=== PATIENT | female | born 1960 | race Caucasian/White ===

== ENCOUNTER 2020-06-01 15:47 | Outpatient (REF) | payer OTHER, SELFPAY ==
--- NOTE | 2020-06-01 | MM_ITS ---
EXAMINATION: MM SCREENING DIGITAL BREAST TOMOSYNTHESIS, BILATERAL CLINICAL INFORMATION: Screening. Asymptomatic. The lifetime risk of breast cancer based on the Tyrer-Cuzick Model is 8%. COMPARISON: Mammography: 08/20/2018, 07/10/2017, 06/27/2017, 03/13/2016 TECHNIQUE: Digital breast tomosynthesis is performed in both the craniocaudal and mediolateral oblique views along with computer-aided detection (CAD). Synthesized 2D images are generated from the tomosynthesis. Additional left MLO view is provided. FINDINGS: The breasts are heterogeneously dense, which may obscure small masses (ACR BI-RADS breast composition Category c). Parenchymal pattern is similar to prior studies. There is no developing density or interval mass or architectural abnormality. No abnormal calcifications. The skin contours are smooth. MM/MM tomosynthesis screening BI IMPRESSION: No mammographic evidence of malignancy. ASSESSMENT: BI-RADS 1: Negative RECOMMENDATION: Routine annual mammography screening. This patient's information was entered into a reminder system with a target due date for their next mammogram.
== END 2020-06-01 15:48 | disposition home or self-care (01) ==
LOC: HO.MAMMO 15:47
PROVIDERS: PCP Internal Medicine; Visit Provider Internal Medicine
DX: Z12.31 Encounter for screening mammogram for malignant neoplasm of breast (principal)
CPT/HCPCS: 77063; 77067

== ENCOUNTER 2020-08-24 14:25 | Outpatient (REF) | payer OTHER, SELFPAY ==
[2020-08-24 15:54] LABS: Alanine Aminotransferase 18 U/L (0-31); Albumin Level 4.3 g/dL (3.5-5.0); Alkaline Phosphatase 70 U/L (39-117); Anion Gap 14 (12-20); Aspartate Amino Transferase 21 U/L (5-31); Bilirubin Direct 0.2 mg/dL (0.0-0.5); Bilirubin Total 0.5 mg/dL (0.0-1.0); Blood Urea Nitrogen 11 mg/dL (9-16); Calcium 9.3 mg/dL (8.4-10.2); Carbon Dioxide 27 mmol/L (22-29); Chloride 105 mmol/L (96-108); Estimated Glomerular Filt Rate > 60; Glucose Random 94 mg/dL (60-115); Potassium 4.4 mmol/L (3.3-5.1); Sodium 142 mmol/L (135-145); Total Protein 7.6 g/dL (6.5-8.0)
[2020-08-24 16:32] LABS: Amphetamine Screen Urine Not Detected (Not Detect); Barbiturates, Urine Not Detected (Not Detect); Benzodiazepines Screen Urine Not Detected (Not Detect); Cannabinoid Screen Urine Not Detected (Not Detect); Cocaine Screen Urine Not Detected (Not Detect); Opiate Screen Urine Not Detected (Not Detect); Phencyclidine Screen Urine Not Detected (Not Detect)
[2020-08-24 16:35] LABS: Folate 18.1 ng/mL (> or = 4.0)
[2020-08-24 17:14] LABS: Vitamin B12 539 pg/mL (200-900)
== END 2020-08-24 14:26 | disposition home or self-care (01) ==
LOC: HO.LAB 14:25
PROVIDERS: PCP Internal Medicine; Visit Provider Psychiatry & Neurology Neurology
DX: G31.84 Mild cognitive impairment of uncertain or unknown etiology (principal)
CPT/HCPCS: 80053; 80076; 80307; 82248; 82607; 82746

== ENCOUNTER 2021-08-15 15:06 | Emergency (ER) | payer OTHER, SELFPAY ==
--- NOTE | ~2021-08-15 | CT_ITS ---
EXAMINATION: CT HEAD WITHOUT CONTRAST (STROKE PROTOCOL) CLINICAL INFORMATION: Stroke protocol. Right-sided facial droop COMPARISON: None TECHNIQUE: Contiguous axial imaging was performed from the skull base to vertex without intravenous administration of contrast. This CT examination was performed using dose optimization techniques as appropriate, variously including the following: *Automated exposure control *Adjustment of mA and/or kV according to patient size (this includes techniques or standardized protocols for targeted exams where dose is matched to indication/reason for exam; i.e. extremities or head) *Use of iterative reconstruction technique DLP: 684 mGy-cm FINDINGS: There is no intracranial hemorrhage, hematoma, or extra-axial fluid collection. The ventricles, sulci, and cisterns are prominent involving the frontal and occipital lobes with the appearance of Alzheimer's disease. The silva-white matter differentiation appears symmetric. There is no acute infarct or mass lesion. There is some periventricular white matter low density present. The calvarium appears intact. There is no pneumocephalus or orbital emphysema. The visualized sinuses and middle ears and mastoid air cells show no significant mucosal thickening. There are no air-fluid levels. CT/CT head for stroke IMPRESSION: Bilateral frontal lobe atrophy with the appearance of Alzheimer's disease. No acute intracranial abnormality appreciated. This critical result was discussed with Dr. Mac at 3:28 PM hours on August 15, 2021. It was ascertained that the content and urgency of the report was understood at the time of direct communication.
--- NOTE | ~2021-08-15 | CT_ITS ---
EXAMINATION: CT ANGIOGRAM OF THE HEAD CT ANGIOGRAM OF THE NECK CLINICAL INFORMATION: Right-sided facial droop and confusion. COMPARISON: CT scan of the head earlier 08/15/2021. TECHNIQUE: Test bolus series followed by intravenous administration 70 mL of Omnipaque 300. Helical imaging was performed in the axial plane from the mediastinum to the skull vertex. A delayed postcontrast CT scan of the head was obtained. The degree of stenosis is based off NASCET criteria. The data was processed at the mri special procedures technologist workstation for generation of MIP images. Three-dimensional volume rendered reformatted images were also generated at an offline 3-D workstation. This CT examination was performed using dose optimization techniques as appropriate, variously including the following: *Automated exposure control *Adjustment of mA and/or kV according to patient size (this includes techniques or standardized protocols for targeted exams where dose is matched to indication/reason for exam; i.e. extremities or head) *Use of iterative reconstruction technique DLP: 1522 mGy-cm. FINDINGS: CT Head: There is no evidence of acute intracranial hemorrhage or territorial infarction. No abnormal mass-effect or midline shift is seen. [place] to white matter differentiation is well preserved. No extra-axial fluid collections are identified. There is no abnormal enhancement. The study demonstrates prominence of the bilateral anterior horns, anterior bodies and temporal horns of the lateral ventricles bilaterally. There is some low attenuation in the periventricular and subcortical white matter bilaterally anteriorly which is nonspecific. The osseous structures and soft tissues are normal. The mastoid air cells and visualized portions of the paranasal sinuses are well-aerated. CTA Neck: There is a classic configuration of the aortic arch. There are mild atheromatous calcifications of the arch. The subclavian arteries are patent bilaterally. The common carotid arteries are patent with uniform caliber. The carotid bifurcations appear normal. The bilateral cervical internal carotid arteries have uniform caliber and are patent. The origins of the vertebral arteries are well-demonstrated bilaterally. The left vertebral artery is dominant, and the right vertebral artery has a uniform but thin caliber throughout its cervical course extending intracranially. Nonvascular: The upper lung edwards appear well-aerated. The thyroid gland is relatively small. There are mildly prominent lymph nodes at multiple levels in the neck bilaterally. There are mild spondylitic changes in the cervical spine. The right maxillary 3rd molar tooth is impacted and unerupted. CTA Head: There is minimal atheromatous calcification of the bilateral cavernous internal carotid arteries which are patent. The intracranial internal carotid arteries and their bifurcations appear normal. The middle and anterior cerebral arteries bilaterally demonstrate normal caliber with no evidence of focal stenosis, aneurysm or vascular malformation. There is normal arborization of the middle cerebral artery branches. The anterior communicating artery is normal. In the posterior circulation, the left vertebral artery is dominant. The vertebral arteries intradurally have normal caliber. The basilar artery appears normal. The posterior cerebral arteries have normal caliber. The venous sinuses opacify normally. CT/CT angio head neck stroke IMPRESSION: 1. There are no acute bleeds or territorial infarct. There are no masses or areas of abnormal enhancement. 2. The anterior horns, anterior bodies and temporal horns of the lateral ventricles bilaterally are prominent as described above. There are periventricular white matter changes as described above. 3. No significant atheromatous changes are seen in the neck circulation. There are no flow-limiting stenoses. 4. Intracranially there are no focal stenoses, aneurysms or vascular malformations. 5. This critical result was discussed with Dr Mac by telephone on 08/15/2021 at 4:11 PM and it was ascertained that the content and urgency of the report was understood at the time of direct communication.
--- NOTE | ~2021-08-15 | XR_ITS ---
EXAMINATION: XR CHEST CLINICAL INFORMATION: Stroke COMPARISON: None TECHNIQUE: AP portable view of the chest was obtained. FINDINGS: There is mild elevation of the right hemidiaphragm. There are some increased markings at the right lung base likely related to atelectasis or scarring. No confluent parenchymal disease is appreciated. No pneumothorax or pleural effusion. Heart normal size. No evidence of pulmonary edema. XR/XR chest 1V IMPRESSION: No significant acute parenchymal disease.
--- NOTE | ~2021-08-15 | MR_ITS ---
EXAMINATION: MR BRAIN WITHOUT CONTRAST CLINICAL INFORMATION: Stroke. COMPARISON: CT head from 08/15/2021. TECHNIQUE: MRI of the brain was obtained using routine sequences without contrast. FINDINGS: No focal restricted diffusion is demonstrated to suggest acute or subacute cerebral ischemia. No evidence of acute or chronic hemorrhagic products on heme-sensitive imaging. Disproportionate prominent volume loss of the right greater than left frontal lobes, insular parenchyma, and anterior temporal lobes. Associated partially confluent T2 FLAIR hyperintensity within the periventricular and deep white matter T2 FLAIR hyperintensity within the bilateral frontal lobes. There are additional scattered periventricular and deep white matter T2 FLAIR hyperintensities most commonly seen with mild underlying microangiopathy. Proportional prominence of the ventricles and sulcal spaces without evidence of obstructive hydrocephalus. No abnormal mass effect. No midline shift. Normal appearance of the pituitary gland. Normal positioning of the cerebellar tonsils. Normal arterial and venous vascular flow voids are present. Normal, homogeneous marrow signal. There is a 1.1 cm lymph node with fatty hilum in the anterior aspect of the superficial lobe of the left parotid gland. Mild degenerative spondyloarthropathy of the visualized upper cervical spine. Moderate mucosal thickening of the paranasal sinuses. No signal abnormalities within the mastoids. MR/MR head/brain wo con IMPRESSION: 1. No acute intracranial abnormalities. 2. Prominent disproportionate volume loss of the right greater than left frontotemporal lobes with associated encephalomalacia/gliosis. Ex vacuo dilatation of the frontal horns of the lateral ventricles.
--- NOTE | 2021-08-15 15:11 | ECG_ITS ---
Test Reason : stroke alert Blood Pressure : / mmHG Vent. Rate : 076 BPM Atrial Rate : 076 BPM P-R Int : 120 ms QRS Dur : 074 ms QT Int : 400 ms P-R-T Axes : 046 -02 019 degrees QTc Int : 450 ms Normal sinus rhythm Nonspecific T wave abnormality Abnormal ECG No previous ECGs available Referred By: Lety Nolasco Electronically Signed By:JARED GATICA
[2021-08-15 15:17] LABS: Prothrombin Time Whole Bld POC 11.2 sec (11.1-13.5); ~PT, ~INR - Anti Coag Clinic 0.9 (0.9-1.1)
--- NOTE | 2021-08-15 15:28 | ED_ITS ---
HPI - Neuro Symptoms/Deficit General Chief Complaint: Stroke Stated Complaint: STROKE ALERT, R FACE DROOP,AMS X'S 2 HRS,NO THINNE Time Seen by Provider: 08/15/21 15:10 Source: patient, family () and EMS Mode of arrival: EMS Limitations: no limitations History of Present Illness HPI Narrative: 60-year-old female history of dementia noted by her today at 11:00 patient has more incoherent, more right-sided facial droop than her baseline, slightly unstable gait. Patient was transported to the hospital as stroke alert. On arrival patient has no new neurological deficit, patient follow commands of the examiner intermittently. Not taking any anti coagulation. Related Data Allergies Allergy/AdvReac Type Severity Reaction Status Date / Time No Known Allergies Allergy Verified 08/15/21 15:10 Review of Systems Review of Systems: Insert surge of system Yes Unobtainable due to mental condition (Dementia) [facility] Social History Social History Advance Directives: Yes Advance Directives Information Provided: No Advance Directives on File: No Physical Exam Vital Signs: Vital Signs: Last Vital Signs Temp 97.9 F 08/15/21 15:47 Pulse 74 08/15/21 15:47 Resp 18 08/15/21 15:47 BP 112/55 L 08/15/21 15:47 Pulse Ox 97 08/15/21 15:47 BMI result Body Mass Index 22.7 Vital signs have been reviewed as appeared to be correct. Blood pressure normal. Heart rate normal. Respiration rate normal. Temperature normal. Oxygen saturation normal. Appearance: Alert. Oriented X3. No acute distress. Head: Normal external exam. Normocephalic. Atraumatic. No Weir signs noted. No raccoon eyes noted, mild right facial droop. Eyes: PERRLA. EOMI. Conjunctiva and sclera normal. Eyelids normal. ENT: TM's Normal. Pharynx normal. Uvula midline. Moist mucous membranes. No trismus noted. No drooling noted. No muffled voice noted. Neck: Normal inspection. Neck supple. FROM. No adenopathy. Thyroid Normal. No meningeal signs. No neck mass noted. CVS: Normal heart rate and rhythm. Heart sound normal. No murmurs noted. Pulses normal throughout. Respiratory: No respiratory distress. Painless inspiration. Breath sounds normal. No wheezes/rales/rhonchi noted. Chest nontender. No accessory muscle usage noted or decreased air movement noted. Abdomen: Soft and nontender. Bowel sounds normal in all 4 quadrants. No distention noted. No organomegaly noted. No visible injury noted. Back: No CVA tenderness. Full range of motion noted. Skin: Skin warm and dry. Normal skin color. Normal skin turgor. No rashes/lesions/lacerations noted. Extremities: No lower extremity edema. Extremities exhibit normal range of motion. Extremities nontender. Neuro: Oriented X 3. Cranial nerve exam: II-XII are grossly intact No motor deficit. No sensory deficit. Reflexes normal. Course Course Course Narrative: Assessment and plan. 60-year-old female history of dementia brought in by her family for increased ease incoherent and decreased mental status, patient had a CT head and MRI of the head which showed no acute intracranial stroke, patient also had a CTA of the head and neck which showed no acute thromboembolic blockage of any of the major vessels.Labs is remarkable for include is of TSH with normal free T4, patient is taking levothyroxine a home but there is a question of compliance because of the patient's dementia, discussion with the family to arrange for visiting nurse to administer patient's medication, social security assessor consultation was obtained with VNA referral was requested. Patient is showing leukocytosis for unclear source of infection. MDM - Neuro Symptoms/Deficit Medical Records Attestation: I reviewed the patient's medical records. Lab Data Attestation: I reviewed the patient's lab results. Result diagrams: 08/15/21 15:40 08/15/21 15:40 Labs: Lab Results 08/15/21 08/15/21 08/15/21 Range/Units 15:13 15:35 15:40 WBC 14.9 H (4.8-10.8) X10*3/uL RBC 3.96 L (4.20-5.50) X10*6/uL Hgb 11.9 L (12.0-16.0) g/dl Hct 37.2 (37.0-47.0) % MCV 93.9 (80.0-98.0) fL MCH 30.1 (27.0-33.0) pg MCHC 32.0 (31.0-35.0) g/dl RDW 12.7 (11.0-16.0) % Plt Count 250 (160-400) X10*3/uL MPV 9.3 L (9.4-12.3) fL Immature Gran % (Auto) 0.5 H (0.0-0.4) % Neut % (Auto) 85.4 H (45-73) % Lymph % (Auto) 5.7 L (20-40) % [place] % (Auto) 8.2 (2-11) % Eos % (Auto) 0.1 (0-4) % Baso % (Auto) 0.1 (0-2) % Lymph # (Auto) 0.9 L (1.2-4.9) X10*3/uL [place] # (Auto) 1.2 (0.1-1.2) X10*3/uL Eos # (Auto) 0.0 (0.0-0.4) X10*3/uL Baso # (Auto) 0.0 (0.0-0.2) X10*3/uL Abs Immat Gran (auto) 0.07 H (0.00-0.03) X10*3/uL Absolute Neuts (auto) 12.7 H (2.0-8.3) x10*3/uL Absolute Nucleated RBC 0.000 (0.0-0.012) X10*3/uL Nucleated RBC % (auto) 0.0 (0.0-0.2) /100WBC PT (9.9-13.0) SEC Whole Blood PT 11.2 (11.1-13.5) sec INR (0.9-1.1) Whole Blood INR 0.9 (0.9-1.1) APTT (24.1-38.0) SEC Sodium (135-145) mmol/L Potassium (3.3-5.1) mmol/L Chloride (96-108) mmol/L Carbon Dioxide (22-29) mmol/L Anion Gap (12-20) BUN (9-16) mg/dL Creatinine (0.5-1.4) mg/dL Estim Creat Clear Calc Estimated GFR POC Glucose 125 H (60-115) mg/dL Random Glucose (60-115) mg/dL Calcium (8.4-10.2) mg/dL Magnesium (1.6-2.6) mg/dL Total Bilirubin (0.0-1.0) mg/dL Direct Bilirubin (0.0-0.5) mg/dL AST (5-31) U/L ALT (0-31) U/L Alkaline Phosphatase (39-117) U/L Total Creatine Kinase (26-140) U/L Troponin I High Sens (<3.5-17.0) ng/L Total Protein (6.5-8.0) g/dL Albumin (3.5-5.0) g/dL Lipase (8-78) U/L TSH (0.32-4.0) uIU/mL Free T4 (0.71-1.85) ng/dL Urine Color Urine Appearance Urine pH (5.0-8.0) Ur Specific [place] (1.005-1.025) Urine Protein (NEG-TRACE) MG/DL Urine Glucose (UA) (NEG) MG/DL Urine Ketones (NEG) MG/DL Urine Blood (NEG) Urine Nitrite (NEG) Ur Leukocyte Esterase (NEG) 08/15/21 08/15/21 08/15/21 Range/Units 15:40 15:40 15:40 WBC (4.8-10.8) X10*3/uL RBC (4.20-5.50) X10*6/uL Hgb (12.0-16.0) g/dl Hct (37.0-47.0) % MCV (80.0-98.0) fL MCH (27.0-33.0) pg MCHC (31.0-35.0) g/dl RDW (11.0-16.0) % Plt Count (160-400) X10*3/uL MPV (9.4-12.3) fL Immature Gran % (Auto) (0.0-0.4) % Neut % (Auto) (45-73) % Lymph % (Auto) (20-40) % [place] % (Auto) (2-11) % Eos % (Auto) (0-4) % Baso % (Auto) (0-2) % Lymph # (Auto) (1.2-4.9) X10*3/uL [place] # (Auto) (0.1-1.2) X10*3/uL Eos # (Auto) (0.0-0.4) X10*3/uL Baso # (Auto) (0.0-0.2) X10*3/uL Abs Immat Gran (auto) (0.00-0.03) X10*3/uL Absolute Neuts (auto) (2.0-8.3) x10*3/uL Absolute Nucleated RBC (0.0-0.012) X10*3/uL Nucleated RBC % (auto) (0.0-0.2) /100WBC PT 12.9 (9.9-13.0) SEC Whole Blood PT (11.1-13.5) sec INR 1.1 (0.9-1.1) Whole Blood INR (0.9-1.1) APTT 31.8 (24.1-38.0) SEC Sodium 140 (135-145) mmol/L Potassium 4.3 (3.3-5.1) mmol/L Chloride 109 H (96-108) mmol/L Carbon Dioxide 19 L (22-29) mmol/L Anion Gap 16 (12-20) BUN 17 H (9-16) mg/dL Creatinine 0.92 (0.5-1.4) mg/dL Estim Creat Clear Calc 61.6 Estimated GFR > 60 POC Glucose (60-115) mg/dL Random Glucose 152 H (60-115) mg/dL Calcium 9.0 (8.4-10.2) mg/dL Magnesium 1.9 (1.6-2.6) mg/dL Total Bilirubin 0.8 (0.0-1.0) mg/dL Direct Bilirubin 0.3 (0.0-0.5) mg/dL AST 18 (5-31) U/L ALT 15 (0-31) U/L Alkaline Phosphatase 55 D (39-117) U/L Total Creatine Kinase 50 (26-140) U/L Troponin I High Sens < 3.5 (<3.5-17.0) ng/L Total Protein 6.2 L (6.5-8.0) g/dL Albumin 3.5 (3.5-5.0) g/dL Lipase 36 (8-78) U/L TSH 22.41 H (0.32-4.0) uIU/mL Free T4 0.86 (0.71-1.85) ng/dL Urine Color Urine Appearance Urine pH (5.0-8.0) Ur Specific [place] (1.005-1.025) Urine Protein (NEG-TRACE) MG/DL Urine Glucose (UA) (NEG) MG/DL Urine Ketones (NEG) MG/DL Urine Blood (NEG) Urine Nitrite (NEG) Ur Leukocyte Esterase (NEG) 08/15/21 Range/Units 17:40 WBC (4.8-10.8) X10*3/uL RBC (4.20-5.50) X10*6/uL Hgb (12.0-16.0) g/dl Hct (37.0-47.0) % MCV (80.0-98.0) fL MCH (27.0-33.0) pg MCHC (31.0-35.0) g/dl RDW (11.0-16.0) % Plt Count (160-400) X10*3/uL MPV (9.4-12.3) fL Immature Gran % (Auto) (0.0-0.4) % Neut % (Auto) (45-73) % Lymph % (Auto) (20-40) % [place] % (Auto) (2-11) % Eos % (Auto) (0-4) % Baso % (Auto) (0-2) % Lymph # (Auto) (1.2-4.9) X10*3/uL [place] # (Auto) (0.1-1.2) X10*3/uL Eos # (Auto) (0.0-0.4) X10*3/uL Baso # (Auto) (0.0-0.2) X10*3/uL Abs Immat Gran (auto) (0.00-0.03) X10*3/uL Absolute Neuts (auto) (2.0-8.3) x10*3/uL Absolute Nucleated RBC (0.0-0.012) X10*3/uL Nucleated RBC % (auto) (0.0-0.2) /100WBC PT (9.9-13.0) SEC Whole Blood PT (11.1-13.5) sec INR (0.9-1.1) Whole Blood INR (0.9-1.1) APTT (24.1-38.0) SEC Sodium (135-145) mmol/L Potassium (3.3-5.1) mmol/L Chloride (96-108) mmol/L Carbon Dioxide (22-29) mmol/L Anion Gap (12-20) BUN (9-16) mg/dL Creatinine (0.5-1.4) mg/dL Estim Creat Clear Calc Estimated GFR POC Glucose (60-115) mg/dL Random Glucose (60-115) mg/dL Calcium (8.4-10.2) mg/dL Magnesium (1.6-2.6) mg/dL Total Bilirubin (0.0-1.0) mg/dL Direct Bilirubin (0.0-0.5) mg/dL AST (5-31) U/L ALT (0-31) U/L Alkaline Phosphatase (39-117) U/L Total Creatine Kinase (26-140) U/L Troponin I High Sens (<3.5-17.0) ng/L Total Protein (6.5-8.0) g/dL Albumin (3.5-5.0) g/dL Lipase (8-78) U/L TSH (0.32-4.0) uIU/mL Free T4 (0.71-1.85) ng/dL Urine Color YELLOW Urine Appearance HAZY Urine pH 6.5 (5.0-8.0) Ur Specific [place] 1.010 (1.005-1.025) Urine Protein TRACE (NEG-TRACE) MG/DL Urine Glucose (UA) NEG (NEG) MG/DL Urine Ketones 5 (NEG) MG/DL Urine Blood TRACE (NEG) Urine Nitrite NEG (NEG) Ur Leukocyte Esterase NEG (NEG) Imaging Data Head CT: Attestation: I personally reviewed and interpreted this imaging study as follows: Radiologist's impression: Bilateral frontal lobe atrophy with the appearance of Alzheimer's disease.No acute intracranial abnormality appreciated. ? Brain MRI: Attestation: I personally reviewed and interpreted this imaging study as follows: Radiologist's impression: 1. No acute intracranial abnormalities. ? 2. Prominent disproportionate volume loss of the right greater than left frontotemporal lobes with associated encephalomalacia/gliosis. Ex vacuo dilatation of the frontal horns of the lateral ventricles. Chest x-ray: Attestation: I personally reviewed and interpreted this imaging study as follows: Radiologist's impression: No significant acute parenchymal disease. ECG Data Attestation: I personally reviewed and interpreted this ECG as follows: Interpretation: Normal sinus rhythm at 76 beats per minutes, normal intervals, nonspecific T- wave inversion in the anterolateral leads. NIH Stroke Scale Time: 15:36 Level of Consciousness: Alert Level of Consciousness Questions: Answers neither question correctly (Patient normally have a cognitive disorder and dementia so patient is acting at her baseline.) Level of Consciousness Commands: Performs neither task correctly Best Gaze: Normal Visual: No visual loss Facial Palsy: Minor paralyis Motor Arm (Right): No drift Motor Arm (Left): No drift Motor Leg (Right): No drift Motor Leg (Left): No drift Limb Ataxia: Absent Sensory: Normal Best Language: No aphasia Dysarthia: Normal Extinction and Inattention: No abnormality Score: 5 Discharge Plan Discharge Clinical Impression: Dementia, Leukocytosis, Hypothyroidism Patient Disposition: Home, Self-Care Instructions: Dementia (ED) Referrals: Tarun Senior MD [Primary Care Provider] - 2 days
[2021-08-15] MEDS: iohexoL 350 MG/ML 100 ML INFUS..BTL IV (15:35)
[2021-08-15 15:43] VITALS: BMI 22.7
[2021-08-15 15:46] LABS: MANUAL DIFF FLAG NO
[2021-08-15 15:47] VITALS: BP 112/55; PULSE 74; RESP 18; TEMP 36.6; O2SAT 97
[2021-08-15 15:47] LABS: Basophils Percent Auto 0.1 % (0-2); Eosinophils Percent Auto 0.1 % (0-4); Hematocrit 37.2 % (37.0-47.0); Hemoglobin 11.9 g/dl (12.0-16.0); Imm Gran Abs Auto 0.07 X10*3/uL (0.00-0.03); Imm Gran Pct Auto 0.5 % (0.0-0.4); Lymphocytes Absolute Auto 0.9 X10*3/uL (1.2-4.9); Lymphocytes Percent Auto 5.7 % (20-40); Mean Corpuscular Hemoglobin 30.1 pg (27.0-33.0); Mean Corpuscular Volume 93.9 fL (80.0-98.0); Mean Platelet Volume 9.3 fL (9.4-12.3); Monocytes Absolute Auto 1.2 X10*3/uL (0.1-1.2); Monocytes Percent Auto 8.2 % (2-11); Neutrophils Absolute Auto 12.7 x10*3/uL (2.0-8.3); Neutrophils Percent Auto 85.4 % (45-73); Platelet Count 250 X10*3/uL (160-400); Red Blood Count 3.96 X10*6/uL (4.20-5.50); Red Cell Distribution Width 12.7 % (11.0-16.0); White Blood Count 14.9 X10*3/uL (4.8-10.8)
[2021-08-15 15:56] LABS: INTERNATIONAL NORM RATIO 1.1 (0.9-1.1); Prothrombin Time 12.9 SEC (9.9-13.0)
[2021-08-15 15:59] LABS: Partial Thromboplastin Time 31.8 SEC (24.1-38.0)
[2021-08-15 16:04] LABS: Alanine Aminotransferase 15 U/L (0-31); Albumin Level 3.5 g/dL (3.5-5.0); Alkaline Phosphatase 55 U/L (39-117); Anion Gap 16 (12-20); Aspartate Amino Transferase 18 U/L (5-31); Bilirubin Direct 0.3 mg/dL (0.0-0.5); Bilirubin Total 0.8 mg/dL (0.0-1.0); Blood Urea Nitrogen 17 mg/dL (9-16); Carbon Dioxide 19 mmol/L (22-29); Chloride 109 mmol/L (96-108); Creatinine Clr Calc Pharmacy 61.6; Estimated Glomerular Filt Rate > 60; Glucose Random 152 mg/dL (60-115); Lipase 36 U/L (8-78); Magnesium 1.9 mg/dL (1.6-2.6); Potassium 4.3 mmol/L (3.3-5.1); Sodium 140 mmol/L (135-145); Total Protein 6.2 g/dL (6.5-8.0)
[2021-08-15 16:06] LABS: Troponin-I High Sensitivity < 3.5 ng/L (<3.5-17.0)
[2021-08-15 16:23] LABS: TSH reflex Free T4 22.41 uIU/mL (0.32-4.0)
[2021-08-15 16:58] LABS: Glucose, Whole Blood 125 mg/dL (60-115)
[2021-08-15 17:23] LABS: Free T4 (Free Thyroxine) 0.86 ng/dL (0.71-1.85)
[2021-08-15 17:46] LABS: Appearance Urine HAZY; Color Urine YELLOW; Glucose Urine UA NEG (NEG); Leukocyte Esterase Urine NEG (NEG); Nitrite Urine NEG (NEG); PH 6.5 (5.0-8.0); UACC Culture Trigger NO; Urine Blood TRACE (NEG); Urine Ketones 5 MG/DL (NEG); Urine Protein TRACE MG/DL (NEG-TRACE)
[2021-08-15 18:00] LABS: RBC Urine 0-2 /HPF (0); WBC Urine 0 /HPF (0-4)
[2021-08-15 18:01] LABS: Bacteria Urine 1+ /LPF; Mucus Urine 1+ /LPF; Squamous Epithelial Cell Urine TRACE /LPF
--- NOTE | 2021-08-15 18:18 | MHC.CM.ED ---
CM met with patient and at the request of Dr. Mac regarding possible VNA at home. Concern that patient may not be taking all of her medications. Pt has dementia and elevated TSH. Pt is confused, wandering in ED, wanting to go home. Pt does not want any help. Pt is definitely confused. 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 states she is in the office, but has no responsibilities. Referral placed with [facility]. CM also gave listing of area home care companies that provide home care for private pay. Contact card given as CM and had difficulty speaking secondary to pt interrupting and wandering. Pt looking for daughter. CM had daughter come to bedside and patient was much more compliant staying in assigned bed/chair. Enc to call with any questions or concerns. Pt to be d/c home.
== END 2021-08-15 18:22 | disposition home or self-care (01) ==
PROVIDERS: Emergency Medicine; Emergency Provider Emergency Medicine; PCP Internal Medicine
DX: F03.90 Unspecified dementia, unspecified severity, without behavioral disturbance, psychotic disturbance, mood disturbance, and anxiety (principal); E03.9 Hypothyroidism, unspecified; D72.829 Elevated white blood cell count, unspecified; R29.705 NIHSS score 5; Z79.899 Other long term (current) drug therapy
CPT/HCPCS: 70450; 70496; 70498; 70551; 71045; 80048; 80076; 81001; 82550; 82947; 83690; 83735; 84439; 84443; 84484; 85025; 85610; 85730; 93005; 96360; 99284; 99285; Q9967

== ENCOUNTER 2024-07-21 12:05 | Outpatient (REF) | payer OTHER, SELFPAY ==
[2024-07-21 12:54] LABS: Thyroid Stimulating Hormone 18.79 uIU/mL (0.32-4.0)
== END 2024-07-21 12:06 | disposition home or self-care (01) ==
LOC: HO.HVNA 12:05
PROVIDERS: Visit Provider Internal Medicine
DX: E03.9 Hypothyroidism, unspecified (principal)
CPT/HCPCS: 36415; 84443

== ENCOUNTER 2025-03-15 13:47 | Outpatient (REF) | payer SELFPAY ==
[2025-03-15 16:10] LABS: Free T4 (Free Thyroxine) 1.36 ng/dL (0.71-1.85)
--- OUTSIDE RECORDS SUMMARY | 2025-03-15 16:48 | XMS_ITS | Patient Health Record ---
Author Organization [facility] Address [address] [place] [address] Care Team Providers Care Surveyor Name Role Phone Anyi (RETIRED) Bryce HARDING Primary Care Provider Unavailable Ajit Casetllanos Jr Unavailable Reason For Referral No Information Medications Medication SIG (Take, Route, Frequency, Duration) Notes Start Date End Date Status Metoprolol Succinate ER 50 MG 1 tablet Orally Once a day Active Colyte with Flavor Packs 240 GM As directed Orally Over the specified time.; Duration: 1 day(s) 07/10/2016 Active Levothyroxine Sodium 88 MCG 1 capsule on an empty stomach in the morning Orally Once a day Active Atorvastatin Calcium 20 MG 1 tablet Oral ly Once a day Active Itraconazole 100 MG 1 tablet with a meal Orally Once a day Active Problems Problem Type SNOMED Code ICD Code Onset Dates Problem Status W/U Status Risk Notes Problem Colon cancer screening (766447472) Colon cancer screening (Z12.11) Active confirmed Problem Pre-procedure evaluation check (952584072) Encounter for other preprocedural examination (Z01.818) Active confirmed Plan Of Treatment Future Test Test Name Order Date COLONOSCOPY 07/10/2016 Insurance Providers Payer Name Payer Address Payer Phone Subscriber Number Group Number Insured Name Patient Relationship to Insured Coverage Start Date Coverage End Date [employer] [address] [place] [phone] [id number] LEE ANN ARMSTRONG Self - patient is the insured Medical (General) History Medical History History ICD Code hypertension eczema elevated cholesterol hypothyroidism
--- OUTSIDE RECORDS SUMMARY | 2025-03-15 16:48 | XMS_ITS | Encounter Summary ---
Author Organization [facility] Address [address] [place] [phone] Phone Care Team Providers Care Chop Saw Operator Name Role Phone Tarun Senior MD Primary Care Provide r Reason for Visit * Reason Onset Date Comments Medication Refill 10/10/2023 Encounter Details Date Type Department Care Team ([facility] st Contact Info) Description 10/10/2023 Refill [facility] Department of [place]rology [address] [place] [address], [address], [address] [place] [address] Linn Jacob MD [address] [place] [id number] [email or web address] Medication Refill Social History Tobacco Use Types Packs/Day Years Used Date Smoking Tobacco: Never Assessed Education Answer Date Recorded Are you interested in more education? Not on anish e 09/28/2022 Are you concerned about learning? Not on file 09/28/2022 No 09/28/2022 No 09/28/2022 Digital Access Answer Date Recorded No 10/26/2022 No 10/26/2022 No 10/26/2022 Reliable internet access at home? Not on file 10/26/2022 Device with a working camera? Not on file Comments Unknown Sex and Gender Information Value Date Recorded Sex Assigned at Female 01/07/2021 8:00 PM EDT Legal Sex Female 10:36 AM EDT Gender Identity Female 01/07/2021 8:00 PM EDT Sexual Orientation Straight 01/07/2021 8: 00 PM EDT documented as of this encounter Progress Notes * Afsaneh Malloy - 10/10/2023 3:22 PM EDT Patient's pharmacy requires a minimum of 90 days supply to fill prescription. ([facility]) Thanks. Abigail Miranda documented in this encounter Plan of Treatment Not on file documented as of this encounter Visit Diagnoses Not on filedocumented in this encounter Care Teams Chop Saw Operator Relationship Specialty Start Date End Date Tarun Senior MD [address] [place] [phone] PCP - General Internal Medicine 12/01/20 documented as of this encounter Additional Source Comments The information contained in this document represents components of the legal health record. It is not the complete legal health record.[facility]
--- OUTSIDE RECORDS SUMMARY | 2025-03-15 16:48 | XMS_ITS | Clinical Summary ---
Author Organization [facility] Address [facility] [address] [place] [phone] Phone Care Team Providers Care Sports Specialist Name Role Phone Tarun Senior MD Primary Care Provide r Medications traZODone (DESYREL) 50 MG tablet Take 1 tablet (50 mg total) by mouth nightly at bedtime. 30 tablet 1 2 Active risperiDONE (RISPERDAL) 0.25 MG tablet Take 1 tablet (0.25 mg total) by mouth 2 (two) times a day. 180 tablet 3 4 Active risperiDONE (RISPERDAL M-TABS) 0.5 MG disintegrating tablet Take 1 tablet (0.5 mg total) by mouth 2 (two) times a day. 60 tablet 3 4 Active Social History Tobacco Use Types Packs/Day Years [...] Orientation Straight 01/07/2021 8: 00 PM EDT Last Filed Vital Signs Vital Sign Reading Time Taken Comments Blood Pressure - - Pulse - - Temperature - - Respiratory Rate - - Oxygen Saturation - - Inhaled Oxygen Concentration - - Weight 61.7 kg (136 lb) 01/10/2021 11:00 AM EDT Height 167.6 cm (5' 6 ) 01/10/2021 11:00 AM EDT Body Mass Index 21.95 01/10/2021 11:00 AM EDT Plan of Treatment Health Maintenance Due Date Last Done Comments Adult Td,Tdap Booster 1961 LIPID PANEL 1961 DEPRESSION SCREENING 1973 SMOKING Hx and SMOKELESS TOB ACCO SCREENING 1974 HEPATITIS C SCREENING 12/13/1979 HIV ONE-TIME SCREENING (18-6 5 YEARS) 12/13/1979 PAP SMEAR 1982 MAMMOGRAM 2001 COLOGUARD 2006 COLONOSCOPY 2006 COLORECTAL CANCER SCREENING 2006 FIT TEST 2006 FOBT 2006 SIGMOIDOSCOPY 2006 VIRTUAL COLONOSCOPY 2006 PNEUMOCOCCAL VACCINES (50+ y ears) (1 of 1 - PCV) 12/13/2011 ZOSTER VACCINES (1 of 2) 12/13/2011 INFLUENZA VACCINE (#1) 2024 COVID-19 VACCINE (2 - 2024-2 6 season) 2025 09/18/2020 RSV VACCINE (1 - 1-dose 75+ series) 2036 HEPATITIS A VACCINES Aged Out No long er eligible based on patient's age to complete this topic HIB VACCINES Aged Out No longer eligi ble based on patient's age to complete this topic MENINGOCOCCAL VACCINES (ACWY) Aged Out No longer eligible based on patient's age to complete this topic MENINGOCOCCAL VACCINES (B) Aged Out N o longer eligible based on patient's age to complete this topic Medical Devices Not on file Insurance [facility] POS EPO [facility] POS EPO [facility] POS EPO [facility] POS EPO [facility] POS EPO [facility] POS EPO [facility] POS EPO Care Teams Sports Specialist Relationship Specialty Start Date End Date Tarun Senior MD [address] [place] [address] [phone] PCP - General Internal Medicine 12/01/20 Additional Source Comments The information contained in this document represents components of the legal health record. It is not the complete legal health record.[facility]
== END 2025-03-15 13:48 | disposition home or self-care (01) ==
LOC: HO.HVNA 13:47
PROVIDERS: Visit Provider Internal Medicine
DX: E03.9 Hypothyroidism, unspecified (principal)
CPT/HCPCS: 36415; 84439; 84443

== ENCOUNTER 2025-05-05 11:00 | Outpatient (REF) | payer SELFPAY ==
[2025-05-05 16:49] LABS: Free T4 (Free Thyroxine) 1.64 ng/dL (0.71-1.85); Thyroid Stimulating Hormone < 0.01 uIU/mL (0.32-4.0)
== END 2025-05-05 11:01 | disposition home or self-care (01) ==
LOC: HO.HVNA 11:00
PROVIDERS: PCP Internal Medicine; Visit Provider Internal Medicine
DX: E03.9 Hypothyroidism, unspecified (principal)
CPT/HCPCS: 36415; 84439; 84443